=== PATIENT | female | born 1945 | race Caucasian/White ===

== ENCOUNTER 2017-03-26 09:45 | Day surgery (SDC) | payer MEDICARE, OTHER ==
[~2017-03-26] VITALS: Ht 167.6 cm; Wt 68.0 kg
--- NOTE | ~2017-03-26 | OP ---
PATIENT NAME: DEMIAN FRANKLIN MEDICAL RECORD: [id number] :47 LOCATION:D.OPS ADMISSION DATE: SURGEON: DERICK BARRERA DATE OF OPERATION: 03/26/2017 SURGEON: DERICK Barrera DPM. PREOPERATIVE DIAGNOSIS: Neuroma, third intermetatarsal space, left foot. POSTOPERATIVE DIAGNOSIS: Neuroma, third intermetatarsal space, left foot. PROCEDURE: Excision of neuroma from third intermetatarsal space, left foot. ANESTHESIA: Local with monitored anesthesia care. HEMOSTASIS: Pneumatic ankle tourniquet inflated to 250 mmHg. ESTIMATED BLOOD LOSS: Minimal. MATERIALS: 3-0 Vicryl, 4-0 nylon. INJECTABLES: 20 cc of 0.5% bupivacaine plain. The patient has longstanding history of pain associated with a neuroma on the left foot. We discussed the proposed procedure, risks and benefits were discussed. Complications were reviewed. Her questions were answered. She was consented for excision of neuroma, left foot. The patient was brought into the operating room and placed on the operating table in the supine position. A timeout was called with Dr. Barrera, who identified the patient, the surgical site, and the surgery to be performed. Once appropriate anesthesia was obtained, the foot was prepped and draped in the usual aseptic manner. The pneumatic ankle tourniquet was inflated to 250 mmHg on the well-padded left ankle. Attention was directed to the dorsal aspect of the third intermetatarsal space where a 4-cm linear incision was made. This incision was carried deep through soft tissue with care being taken to retract all vital neurovascular structures. All bleeders were cauterized along the way. The deep transverse intermetatarsal ligament was identified at the bottom of this incision and was sharply transected with a 15 blade. A large neuroma was noted in this location. The neuroma was then tracked distally into the lateral aspect of the third toe and the medial aspect of the fourth toe. Both branches were sharply transected at the digital level. The neuroma was then dissected further into the foot more proximally between the third and fourth metatarsal. It was tracked as far possible and then sharply transected. The neuroma was then passed from the field and sent to pathology. The surgical site was then investigated for any remaining pathological tissue and none was noted. The surgical site was then irrigated with copious amounts of normal sterile saline via bulb syringe. The subcutaneous tissues were reapproximated and coapted utilizing 3-0 Vicryl. The skin was reapproximated and coapted utilizing 4-0 nylon. A dressing consisting of Xeroform, 4 x 4's, OPERATIVE REPORT [id number] FRANKLIN,DEMIAN Kerlix, and Coban was applied to the left foot. The pneumatic ankle tourniquet was deflated and capillary refill time is noted to be immediate to all digits of the left foot. The patient tolerated the procedure and anesthesia well. She left the operating room with vital signs stable and capillary refill time intact. The patient was discharged home with instructions to ice and elevate the left foot. She was dispensed a postop shoe to help offload the foot. She was given my cell phone number for any after hour difficulties and we will follow up with her next week. There were no complications at this procedure. TRANSINT:[id number] Voice Confirmation ID: [id number] DOCUMENT ID: [id number] DERICK BARRERA CC: [id number] DICTATION DATE: 03/26/17 163 TIMBER INCISOR OPERATOR: 03/27/[address] [facility] 03/26/17 [facility] [address] [id number]
[~2017-03-26 09:45] MED LIST: LASIX40 MG PO; LIPITOR10 MG PO; MULTIPLE VITAMI1 TA1 PO; POTASSIUM CHLO10 ME1 PO; PREMARIN0.625 MG PO; PROVENTIL HFA6.7 GM INH; SYMBICORT 16010.2 GM INH
[2017-03-26 12:01] VITALS: BP 129/75; Ht 167.6 cm; Wt 68.0 kg
[2017-03-26 12:11] LABS: HEMATOCRIT 40.2 % (36.0-48.0); HEMOGLOBIN 13.1 g/dL (12-16); MCH 32.3 pg (26.0-34.0); MCHC 32.6 g/dL (31.0-37.0); MCV 99.3 fL (80.0-100.0); MEAN PLATELET VOLUME 10.5 fL (7.4-10.4); RBC 4.05 10x6/uL (4.00-5.40); WBC 8.5 10x3/uL (4.8-10.8)
[2017-03-26 12:20] LABS: ANION GAP 13.9 mmol/L (8-16); CALCIUM 8.5 mg/dL (8.5-10.1); CARBON DIOXIDE 25.2 mmol/L (21.0-32.0); CREATININE - SERUM 1.1 mg/dL (0.6-1.3); POTASSIUM - SERUM 4.1 mmol/L (3.5-5.1)
--- NOTE | 2017-03-26 18:13 | NUR ---
1730 IV DC WITH CATHER TIP INTACT
== END 2017-03-26 17:45 | disposition home or self-care (01) ==
LOC: D.OPS 09:45 → D.PAN 13:00 → D.OPS 13:00
PROVIDERS: Anesthesiology
DX: G57.82 Other specified mononeuropathies of left lower limb (principal)